=== PATIENT | male | born 1980 | race Caucasian/White ===

== ENCOUNTER 2025-01-23 10:34 | Outpatient (AMB) | payer BC, SELFPAY ==
--- NOTE | 2025-01-23 10:47 | A.OFFVIS_ITS ---
Intake Visit Reasons: symptoms of BPH, ED, on hormone replacement Intake Note: New Patient is present for BPH, ERECTILE DYSFUNCTION , HORMONE REPLACEMENTS Urology Rx:testosterone , tadalafil PVR:0 mls Blood Thinners: Imaging completed: NONE labs done :08/07/2024 Total testosterone:1022, Fr Testosterone 211.6 [employer] Required: No Accompanied by: Self / Same As Patient Allergies No Known Allergies Allergy (Unverified 11/16/19 18:29) HPI Comments Details: Fab is a pleasant male. He is a patient of Dr. Lang. He is seen for the following urologic conditions - hypogonadism - erectile dysfunction - bladder outlet obstruction Active duty - [employer] Prescriptions provided Maintain six-month follow-up Lab testing on day prior to injection Has noted gradual weakness of stream. Likely due to increased prostate density from testosterone. Should be helped by tadalafil. Current medications include - testosterone Cyp - 55 units subcutaneous b.i.w. - anastrozole 0.25 mg p.o. b.i.w - tadalafil 5 mg daily Hypogonadism Longstanding Exposure to SERM 2011 through 2013 through [facility]X Resulted in hypogonadism Has been treated through testosterone Clinic with inconsistent provision of medications Does have prior laboratories Labs - 08/23 1022, 44.2, PSA not drawn, LH 0.2, estradiol 40 Erectile dysfunction Recent divorce Multiple stresses Does obtain nocturnal erection Current performance has significant psychologic component May place on 5 mg daily tadalafil for bladder stability [facility] Medical History (Updated 01/23/25 @ 11:53 by Merrill Calvin MD) ADHD (attention deficit hyperactivity disorder) Urinary stone GERD (gastroesophageal reflux disease) Crohn disease Bilateral tinnitus Surgical History (Updated 12/29/24 @ 14:38 by PAOLA Carter) History of tonsillectomy History of hernia repair Family History (Updated 12/29/24 @ 14:39 by PAOLA Carter) Father HTN (hypertension) Back problem History of kidney stones Social History (Updated 12/29/24 @ 14:39 by PAOLA Carter) Patient Tobacco Use Status: Former Tobacco user Review of Systems Const Denies chills and Denies fever(s) Card Reports no additional complaints and Denies syncope Resp Denies cough GI Denies abdominal pain and Denies heartburn Reports as per HPI and Denies change in libido Neuro Denies syncope Psych Denies change in libido Endo Denies change in libido Physical Exam Const General: cooperative, healthy appearing, comfortable and no acute distress Orientation/consciousness: patient oriented x3 HEENT Face and sinus: Yes normal facial exam Mouth: moist mucous membranes Neck Neck: Yes normal visual inspection, Yes full ROM and Yes trachea midline Chest Chest palpation & inspection: normal inspection of the chest Resp Effort & Inspection: normal respiratory effort, able to speak in complete sentences and no respiratory distress GI Inspection: Yes normal to inspection Back/Spine/Pelvis Cervical Spine: normal cervical lordosis Thoracic/Lumbar Spine: thoracic and lumbar spine normal to inspection Skin General skin exam: no rashes or lesions noted Neuro General: patient oriented x3, gait normal, tone normal and moves all extremities Extrem General: Yes normal to inspection and Yes capillary refill normal Office Procedures Post Void Residual Post Residual Void Post Void Residual (PVR): 0 [id number]-[id number] Void Residual by ultrasound Results AMB Urinalysis, Automated UA Leukoctes 0 Sarah/uL Last Edit by Stacy Jin [facility] on 01/23/25 10:59 UA Nitrite Negative Last Edit by Stacy Jin [facility] on 01/23/25 10:59 UA Urobilinogen 0.2 mg/dL Last Edit by Stacy Jin [facility] on 01/23/25 10:59 UA Protein 15 mg/dL Last Edit by Stacy Jin [facility] on 01/23/25 10:59 UA pH 6.0 Last Edit by Stacyroselyn Jin [facility] on 01/23/25 10:59 UA Blood 0 Stephane/uL Last Edit by Stacy Jin [facility] on 01/23/25 10:59 UA Specific Donnelly 1.015 Last Edit by Stacy Jin [facility] on 01/23/25 10:5 9 UA Ketone Negative Last Edit by Stacy Jin [facility] on 01/23/25 10:59 UA Bilirubin 0 mg/dL Last Edit by Stacy Jin [facility] on 01/23/25 10:59 UA Glucose 0 mg/dL Last Edit by Stacy Jin [facility] on 01/23/25 10:59 Results Reviewed Results Reviewed: Laboratory Last Values Urine pH (Auto) 6.0 01/23/25 10:58 Specific Donnelly (Auto) 1.015 01/23/25 10:58 Urine Protein (Auto) 15 mg/dL 01/23/25 10:58 Glucose (UA)(Auto) 0 mg/dL 01/23/25 10:58 Urine Ketones (Auto) Negative 01/23/25 10:58 Urine Blood (Auto) 0 Stephane/uL 01/23/25 10:58 Urine Nitrite (Auto) Negative 01/23/25 10:58 Urine Bilirubin (Auto) 0 mg/dL 01/23/25 10:58 Urine Urobilinogen (Auto) 0.2 mg/dL 01/23/25 10:58 Leukocyte Esterase (Auto) 0 Sarah/uL 01/23/25 10:58 Assessment & Plan Assessment & Plan (1) Hypogonadism in male: Code(s): E29.1 - Testicular hypofunction Category: Medical Plan Prescriptions provided Five month lab work Six-month office Orders: Orders Estrad Free (Tot Ultra + Free) 5 Months E29.1 - Testicular hypofunction Testosterone, Total 5 Months E29.1 - Testicular hypofunction Prostate Specific Antigen 5 Months E29.1 - Testicular hypofunction Hematocrit 5 Months E29.1 - Testicular hypofunction Medications: New tadalafil [email or web address] 5 mg PO DAILY 90 tabs 1RF 90 days anastrozole 1/4 tab twice a week day following injection [email or web address] 0.25 mg (1/4 x 1 mg) PO .BIW 30 tabs 0RF 90 days testosterone cypionate Use 1/2 cc twice per week 50 mg (0.5 mL) subcut .BIW 4 mL 5RF 30 days E29.1 - Testicular hypofunction Patient Instructions: This note is constructed using voice recognition software. While every effort has been made to ensure accuracy electron beam photo mask technician errors may have been included. Imaging studies, laboratory and physical exam results were discussed and reviewed in detail. No major barriers to patient understanding were identified. An opportunity to ask questions regarding the treatment plan was provided. All questions were answered. The patient expressed understanding and agreement with the above treatment plan. The patient is aware they should contact our office by phone for worsening of their current condition or the appearance of new urologic symptoms. Compliance is encouraged with any medications and followup testing that is ordered. It is a privilege to participate in the urologic care of your patient. If you have any questions or concerns regarding treatment for the above conditions, or other urologic issues, please do not hesitate to contact me. The office telephone contact is [phone]. Sincerely, Dr Merrill Calvin MD, [facility] - Urology Compassionate Specialist Care for the Genitourinary System Coding Level of Care Code New Pt Level 4 (30012) Diagnoses Hypogonadism in male E29.1 CPT Codes Post Residual Void - PVR CPT Code: 34406-Azkm Void Residual by ultrasound ([id number])
== END 2025-01-23 11:56 | disposition home or self-care (01) ==
LOC: HO.HUSH 10:35
PROVIDERS: PCP Internal Medicine; Visit Provider Urology
DX: E29.1 Testicular hypofunction (principal)
CPT/HCPCS: 99204

== ENCOUNTER → 2025-01-23 10:34 | Outpatient (BNVA) | payer BC, SELFPAY | PROVIDERS: PCP Internal Medicine; Visit Provider Urology | DX: E29.1 Testicular hypofunction (principal) | CPT/HCPCS: 51798 ==